=== PATIENT | male | born 1940 | race Caucasian/White ===

== ENCOUNTER → 2024-01-10 | Outpatient (CLI) | payer MEDICAID, MEDICARE ==
[2024-01-10 18:04] LABS: BASOPHIL % 0.2 % (0.0-0.2); EOSINOPHIL # 0.1 10^3/uL (0.0-0.2); EOSINOPHIL % 1.2 % (0.0-5.0); HEMATOCRIT(ML) 45.4 % (37.0-53.0); HEMOGLOBIN 14.9 g/dL (13.9-16.3); LYMPHOCYTES % 10.8 % (24.0-44.0); MEAN CORP HGB 31.6 pg (26-34); MEAN CORP HGB CONCENTRATION 32.8 g/dL (33-36.5); MEAN CORP VOLUME 96.4 fL (78-100); MONOCYTES # 0.7 10^3/uL (0.3-0.8); MONOCYTES % 5.6 % (5.0-12.0); NEUTROPHIL # 9.8 10^3/uL (1.8-7.7); NEUTROPHILS % 81.5 % (41.0-85.0); PLATELET COUNT 220 10^3/uL (150-400); RED BLOOD CELL 4.71 10^6/uL (4.50-5.90); RED CELL DISTRIBUTION WIDTH 14.2 % (11.5-14.5); WHITE BLOOD CELL 12.1 10^3/uL (4.5-11.0)
[2024-01-10 18:07] LABS: +ADD MANUAL DIFF(NO CHRG) NO
[2024-01-10 18:16] LABS: ANION GAP 16.2; BUN/CREATININE RATIO 23.84 (10.0-20.0); CARBON DIOXIDE 20.6 mmol/L (20.0-32); CREATININE SERUM 1.3 mg/dL (0.59-1.40); POTASSIUM 3.8 mmol/L (3.6-5.2)
[2024-01-10 18:17] LABS: ALBUMIN(ML) 2.3 g/dL (3.4-5.0); ALBUMIN/GLOBULIN RATIO 0.638; CALCIUM 8.3 mg/dL (8.4-10.5); EST GFR, NON-AA 52.5 (>/=60)
== END | disposition home or self-care (01) ==
LOC: NPLAB 17:51
PROVIDERS: ATTEND Internal Medicine
DX: J18.9 Pneumonia, unspecified organism (principal)
CPT/HCPCS: 36415; 80053; 85025